=== PATIENT | female | born 1990 | race Caucasian/White ===

== ENCOUNTER → 2016-10-17 | Outpatient (CLI) | payer SELFPAY ==
[2016-10-17 16:08] LABS: CH 30.1; CHCM 35.4; HCT 41.1 % (34.0-46.0); HDW 2.79; MCHC 34.1 g/dL (31.0-37.0); MCV 85.2 fL (80.0-100.0); Mean Platelet Volume 6.9; RBC 4.83 m/uL (3.80-5.40); RDW 12.2 % (11.5-15.5); WBC 5.5 k/uL (3.8-10.6)
== END ==
LOC: LABWHC1 15:40
PROVIDERS: ATTEND Obstetrics & Gynecology
DX: Z34.80 Encounter for supervision of other normal pregnancy, unspecified trimester (principal)
CPT/HCPCS: 36415; 84702; 85027

== ENCOUNTER → 2016-10-19 | Outpatient (CLI) | payer SELFPAY | END | disposition home or self-care (01) | LOC: LABWHC1 11:59 | PROVIDERS: ATTEND Obstetrics & Gynecology | DX: Z34.80 Encounter for supervision of other normal pregnancy, unspecified trimester (principal) | CPT/HCPCS: 36415; 84702 ==

== ENCOUNTER → 2016-10-23 | Outpatient (CLI) | payer SELFPAY | END | disposition home or self-care (01) | LOC: LABWHC1 07:54 | PROVIDERS: ATTEND Obstetrics & Gynecology | DX: Z34.80 Encounter for supervision of other normal pregnancy, unspecified trimester (principal) | CPT/HCPCS: 36415; 84702 ==

== ENCOUNTER → 2016-10-27 | Outpatient (CLI) | payer SELFPAY | END | disposition home or self-care (01) | LOC: LABWHC1 07:54 | PROVIDERS: ATTEND Obstetrics & Gynecology | DX: Z34.80 Encounter for supervision of other normal pregnancy, unspecified trimester (principal) | CPT/HCPCS: 36415; 84702 ==

== ENCOUNTER → 2016-11-29 | Outpatient (CLI) | payer OTHER ==
--- NOTE | 2016-11-29 22:16 | US ---
EXAMINATION TYPE: US OB <= 14 wk fetus DATE OF EXAM: 11/29/2016 4:20 PM COMPARISON: NONE CLINICAL HISTORY: 26-year-old female Z36 Confirm dates; patient stated had vaginal bleeding from 10/04 10/20 to 10/21/16. Date of LMP: 09/13/2016 Beta HcG (if available): NA EXAM PERFORMED: Transabdominal (TA) FINDINGS: EXAM MEASUREMENTS: GESTATIONAL AGE / DATING Physician Established: not established Dates by LMP: (11 weeks/0 days) EDC: 06/20/2017 Dates by First Scan: today Dates by Current Scan for: (9 weeks/2 days) EDC: 07/02/2017 MATERNAL ANATOMY Uterus: 9.7 x 7.3 x 5.2cm Right Ovary: 2.9 x 1.0 x 1.3cm Left Ovary: 2.5 x 1.9 x 2.1cm Post CDS / Adnexa: wnl Presence of free fluid: no Presence of corpus luteal cyst: in left ovary = 1.7 x 1.7 x 1.7cm Presence of subchorionic bleed: no GESTATION / SURVEY CRL: 2.5cm (9 weeks/2 days) Yolk Sac (normal less than 6mm): 2.9mm Heart Rate: 186 bpm (average of two as HR >180bpm) Rhythm: Normal IUP: Viable IUP SCIENTIST ENGINEER NOTES: Single, viable, IUP, 9 weeks/2 days, EDC: 07/02/2017; HR 186BPM average of 2 measu res as is > normal department standard of 180 BPM. Tech findings called to Cristina at Dr Schwarz's Of [facility] at exam's end. JJ IMPRESSION: 1. Single live anterior with gestational age of 9 weeks 2 days by crown-rump length. This i s frankly discordant with gestational age by LMP (11 weeks 0 days); correlate for accuracy of recall. 2. tachycardia. Short interval follow-up as clinically indicated. 3. Complete survey recommended at 18-20 weeks.
== END | disposition home or self-care (01) ==
LOC: RADUSWWP 15:37
PROVIDERS: ATTEND Obstetrics & Gynecology
DX: O76 Abnormality in fetal heart rate and rhythm complicating labor and delivery (principal); Z3A.09 9 weeks gestation of pregnancy
CPT/HCPCS: 76801

== ENCOUNTER → 2016-12-19 | Outpatient (CLI) | payer OTHER ==
[2016-12-19 08:39] LABS: CH 30.8; HCT 40.6 % (34.0-46.0); HDW 2.71; HGB 13.8 gm/dL (11.4-16.0); MCHC 33.9 g/dL (31.0-37.0); MCV 88.3 fL (80.0-100.0); Mean Platelet Volume 6.8; RBC 4.59 m/uL (3.80-5.40); RDW 12.7 % (11.5-15.5); WBC 6.2 k/uL (3.8-10.6)
[2016-12-19 09:12] LABS: Glucose 83 mg/dL (74-99); Non-African American GFR(MDRD) >60 (>60 ml/min/1.73 sqM)
[2016-12-19 09:34] LABS: Hepatitis B Surface Ag Index 0.08
[2016-12-20 06:15] LABS: Toxoplasma Antibody (IgG) <3.0 IU/mL (<7.2)
== END | disposition home or self-care (01) ==
LOC: LABWHC1 08:02
PROVIDERS: ATTEND Obstetrics & Gynecology
DX: Z34.82 Encounter for supervision of other normal pregnancy, second trimester (principal); Z3A.00 Weeks of gestation of pregnancy not specified
CPT/HCPCS: 36415; 82565; 82947; 85027; 86762; 86777; 86778; 86780; 86850; 86900; 86901; 87340

== ENCOUNTER → 2017-03-15 | Outpatient (CLI) | payer OTHER ==
[2017-03-15 08:37] LABS: CH 31.9; CHCM 34.5; HDW 2.86; HGB 12.5 gm/dL (11.4-16.0); MCH 31.3 pg (25.0-35.0); MCHC 33.7 g/dL (31.0-37.0); MCV 92.9 fL (80.0-100.0); Mean Platelet Volume 8.2; RBC 3.98 m/uL (3.80-5.40); RDW 13.7 % (11.5-15.5); WBC 9.1 k/uL (3.8-10.6)
== END | disposition home or self-care (01) ==
LOC: LABWHC1 07:17
PROVIDERS: ATTEND Obstetrics & Gynecology
DX: Z34.82 Encounter for supervision of other normal pregnancy, second trimester (principal); Z3A.00 Weeks of gestation of pregnancy not specified
CPT/HCPCS: 36415; 82950; 85027

== ENCOUNTER → 2017-03-20 | Outpatient (CLI) | payer OTHER ==
[2017-03-20 11:22] LABS: Glucose 3 Hour, Gest 71 mg/dL
== END | disposition home or self-care (01) ==
LOC: LABWHC1 07:24
PROVIDERS: ATTEND Obstetrics & Gynecology
DX: O99.810 Abnormal glucose complicating pregnancy (principal); Z3A.00 Weeks of gestation of pregnancy not specified
CPT/HCPCS: 36415; 82951; 82952

== ENCOUNTER 2017-06-13 12:53 | Inpatient (IN) | payer OTHER ==
[2017-06-13] MEDS ORDERED: TERBUTALINE 1 MG/ML VIAL SQ PRN (13:28)
[2017-06-13] MEDS ORDERED: CARBOPROST TROMETHAMINE 250 MCG/ML 1 ML AMP IM PRN (13:28)
[2017-06-13] MEDS ORDERED: METHYLERGONOVINE 0.2 MG/ML 1 ML AMP IM PRN (13:28)
[2017-06-13] MEDS ORDERED: LIDOCAINE 1% (PF) 10 MG/ML (30 ML SDV) SQ PRN (13:28)
[2017-06-13] MEDS ORDERED: OXYTOCIN 10 UNIT/ML 1 ML VIAL IM PRN (13:28)
[2017-06-13] MEDS ORDERED: LACTATED RINGERS 1,000 ML IV SCH (13:30)
[2017-06-13] MEDS ORDERED: OXYTOCIN 20 UNITS/1000 ML NS 1,000 ML IV SCH ×2 (13:30→18:15)
[2017-06-13] MEDS ORDERED: BUTORPHANOL 1 MG/ML 1 ML VIAL IV PRN (13:30)
[2017-06-13 13:51] VITALS: BMI 27.8
[2017-06-13 14:27] LABS: Basophils % (A) 0 %; CH 31.7; CHCM 34.5; Eosinophils # (A) 0.1 k/uL (0-0.7); Eosinophils % (A) 1 %; HCT 39.4 % (34.0-46.0); HDW 2.93; HGB 13.1 gm/dL (11.4-16.0); Luc # (Auto) 0.13; Luc % (Auto) 1; Lymphocytes # (A) 1.4 k/uL (1.0-4.8); Lymphocytes % (A) 15 %; MCH 30.7 pg (25.0-35.0); MCHC 33.3 g/dL (31.0-37.0); MCV 92.1 fL (80.0-100.0); Mean Platelet Volume 7.7; Monocytes # (A) 0.5 k/uL (0-1.0); Monocytes % (A) 5 %; Neutrophils # (A) 7.1 k/uL (1.3-7.7); Neutrophils % (A) 78 %; RBC 4.27 m/uL (3.80-5.40); RDW 12.6 % (11.5-15.5); WBC 9.1 k/uL (3.8-10.6); WBC (Perox) 9.07
--- NOTE | 2017-06-13 17:49 | P.HPOB ---
History of Present Illness H&P Date: 06/13/17 Chief Complaint: Contractions. This patient is a pleasant 27-year-old 3 para 2 female estimated date of confinement 07/02/2017 estimated gestational age 37-2/7 weeks who presents to labor and delivery with complaints of regular painful contractions since 3 this morning. Patient was 3 cm in the office and is approximately 4-5 cm dilated now with active labor. Patient's care has been uncomplicated. Patient did have 1 abnormal 3 hour GTT value which does not fulfill the diagnosis of gestational diabetes but I did watch her with nonstress tests and she's had normal growth ultrasounds. Review of Systems Constitutional: Denies chills, Denies fever Ears, nose, mouth and throat: Denies headache, Denies sore throat Cardiovascular: Denies chest pain, Denies shortness of breath Respiratory: Denies cough Gastrointestinal: Reports heartburn Genitourinary: Reports Menstruation: Reports amenorrhea Musculoskeletal: Denies myalgias Past Medical History Past Medical History: No Reported History Additional Past Medical History / Comment(s): removal of Fibroadenoma of breast x2 History of Any Multi-Drug Resistant Organisms: None Reported Additional Past Surgical History / Comment(s): Right Lumectomy 03/2013 Past Anesthesia/Blood Transfusion Reactions: No Reported Reaction Past Psychological History: No Psychological Hx Reported Smoking Status: Never smoker Past Alcohol Use History: None Reported Past Drug Use History: None Reported - Past Family History Father Family Medical History: Hyperlipidemia Additional Family Medical History / Comment(s): pt states many family members with hyperlipidemia Medications and Allergies Home Medications Medication Instructions Recorded Confirmed Type Pid-Ogmf-Qtldb Acid 1 tab PO DAILY 03/30/14 06/13/17 History [-U Capsule (formulary)] Allergies Allergy/AdvReac Type Severity Reaction Status Date / Time amoxicillin trihydrate Allergy Rash/Hives Verified 06/13/17 13:31 [From Augmentin] potassium clavulanate Allergy Rash/Hives Verified 06/13/17 13:31 [From Augmentin] Exam - Vital Signs Vital signs: Vital Signs Temp Pulse Resp BP Pulse Ox 06/13/17 13:30 98.2 F 104 H 17 128/76 100 Intake and Output 06/13/17 06/13/17 06/13/17 06:59 14:59 22:59 Other: # Voids 1 Weight 66.678 kg Patient Weight 06/14/17 06:59 Weight 66.678 kg - OBG Physical Exam Abdomen: bowel sounds normal, no diffuse tenderness, no bruit present, no guarding noted, no hepatomegaly, no splenomegaly, no mass Vulva: both: normal Vagina: normal moisture, no discharge Cervix: no lesion (Cervix is 4-5 cm dilated and approximately 80% effaced.), no discharge Uterus: enlarged (Fundal height is consistently term .) Results blood workup shows she is oh positive, rubella immune, RPR nonreactive , hepatitis B negative, Glucola was abnormal with a normal three-hour gtt., group B strep was negative, ultrasounds have been normal. Result Diagrams: 06/13/17 14:14 Assessment and Plan (1) Normal labor Narrative/Plan: This is a pleasant 27-year-old 3 para 2 female 37-2/7 weeks gestation who is admitted to labor and delivery in active labor. Plan is anticipate normal vaginal delivery. Current Visit: No Status: Acute Code(s): O80 - ENCOUNTER FOR FULL-TERM UNCOMPLICATED DELIVERY SNOMED Code(s): 56757052 (2) Third trimester Current Visit: No Status: Acute Code(s): Z33.1 - STATE, INCIDENTAL SNOMED Code(s): 81204525
--- NOTE | 2017-06-13 18:12 | P.PROBDLV ---
Vaginal Delivery Note - . Vaginal Delivery Note: Normal spontaneous vaginal delivery viable female infant Apgars 9 and 9 delivery time is 1756 hrs. Please see dictated H&P for intimate details of this patient's admission. Brief summary this pleasant 27-year-old 3 para 2 female 37-2/7 weeks gestation admitted to labor and delivery in active labor. Patient is artificial rupture membranes for clear fluid at about 5 cm dilated. Labor is augmented with Pitocin she does not request any pain medications patient gets to complete pushes the head to the perineum. Posterior perineum is supported we have controlled delivery of the 's head over the intact perineum. Mouth and nares are bulb suctioned. There is no evidence of a nuchal cord. With gentle downward traction we then have deliver the anterior and posterior shoulder and rest this 's body. This is a vigorous viable female Apgars are 9 and 9 delivery time is 1756 hrs. After delivery of the the umbilical cord is doubly clamped and cut appears to be trivascular. Placenta is then spontaneously delivered intact. There is marginal cord insertion but otherwise it appears normal. Inspection of perineum shows no lacerations and no repair. Estimated blood loss is 100 mL. All counts are correct 3. No complications. and mother stable in delivery room.
[2017-06-13] MEDS ORDERED: HYDROCORTISONE 2.5% RECTAL CREAM 30 GM TUBE RECTAL PRN (18:13)
[2017-06-13] MEDS ORDERED: diphenhydrAMINE 25 MG CAP PO PRN (18:13)
[2017-06-13] MEDS ORDERED: WITCH HAZEL 1 EACH MED..PAD TOPICAL PRN (18:13)
[2017-06-13] MEDS ORDERED: SIMETHICONE 80 MG CHEWABLE PO PRN (18:13)
[2017-06-13] MEDS ORDERED: diphenhydrAMINE 50 MG/ML 1 ML VIAL IVP PRN (18:13)
[2017-06-13] MEDS ORDERED: BENZOCAINE/MENTHOL SPRAY 1 GM/SPRAY AEROSOL TOPICAL PRN (18:13)
[2017-06-13] MEDS ORDERED: ACETAMINOPHEN TAB 325 MG TAB PO PRN (18:13)
[2017-06-13] MEDS ORDERED: ZOLPIDEM 5 MG TAB PO PRN (18:13)
[2017-06-13] MEDS ORDERED: BISACODYL 10 MG SUPP RECTAL PRN (18:13)
[2017-06-13] MEDS ORDERED: LANOLIN CREAM 5 GM TUBE TOPICAL PRN (18:13)
[2017-06-13] MEDS ORDERED: Acetaminophen-Codeine 300-30mg TAB PO PRN ×2 (18:13)
[2017-06-13] MEDS: IBUPROFEN 600 MG TAB PO PRN (18:30)
[2017-06-13] MEDS: SENNOSIDES-DOCUSATE SODIUM 1 EACH TAB PO SCH (20:04)
[2017-06-14] MEDS ORDERED: IBUPROFEN 600 MG TAB PO ONE (02:35)
--- NOTE | 2017-06-14 05:44 | P.PNOBGVD ---
Subjective - Subjective Patient reports: Reports appetite normal, Reports voiding normally, Reports pain well controlled, Reports ambulating normally : doing well Objective - Latest Vital Signs Latest vital signs: Vital Signs Temp Pulse Resp BP Pulse Ox 06/14/17 00:00 98.1 F 106 H 18 125/66 96 06/13/17 20:10 98.2 F 107 H 16 124/62 98 06/13/17 19:40 99.0 F 107 H 16 130/64 97 06/13/17 19:08 99.1 F 111 H 16 105/57 98 06/13/17 18:55 104 H 18 131/62 06/13/17 18:40 96 17 124/64 06/13/17 18:25 87 18 126/74 06/13/17 18:10 97.2 F L 100 18 127/74 98 06/13/17 13:30 98.2 F 104 H 17 128/76 100 Intake and Output 06/13/17 06/13/17 06/14/17 14:59 22:59 06:59 Intake Total 1300 600 Balance 1300 600 Intake: IV 1300 Lactated Ringers 1,000 ml 1300 @ 125 mls/hr IV .Q8H [facility] Rx#:[id number] Oral 600 Other: Voiding Method Toilet # Voids 1 1 Weight 66.678 kg Patient Weight 06/14/17 06:59 Weight 66.678 kg - Exam Lungs: bilateral: normal Chest: Normal S1, Normal S2 Extremities: Present: normal Abdomen: Present: normal appearance, soft Uterus: Present: normal, firm Assessment and Plan (1) Normal labor Narrative/Plan: day #1. Patient is resting without complaints. Vital signs are stable she's afebrile. Uterus is firm nontender she's having normal lochia. My impression is a normal course. Plan is to continue routine care discharge home tomorrow. Current Visit: No Status: Acute Code(s): O80 - ENCOUNTER FOR FULL-TERM UNCOMPLICATED DELIVERY SNOMED Code(s): 18603897 (2) Third trimester Current Visit: No Status: Acute Code(s): Z33.1 - STATE, INCIDENTAL SNOMED Code(s): 19686451
[2017-06-14] MEDS: IBUPROFEN 600 MG TAB PO PRN ×2 (08:42→19:43)
[2017-06-14] MEDS: SENNOSIDES-DOCUSATE SODIUM 1 EACH TAB PO SCH ×2 (08:45→19:44)
[2017-06-14 12:13] VITALS: RESP 16
[2017-06-14 16:43] VITALS: PULSE 89
[2017-06-15 00:55] VITALS: BP 126/86; TEMP 98
[2017-06-15] MEDS: IBUPROFEN 600 MG TAB PO PRN (02:15)
--- NOTE | 2017-06-15 05:45 | P.PNOBGVD ---
Subjective - Subjective Patient reports: Reports appetite normal, Reports voiding normally, Reports pain well controlled, Reports ambulating normally : doing well Objective - Latest Vital Signs Latest vital signs: Vital Signs Temp Pulse Resp BP 06/15/17 00:00 98.0 F 89 16 126/86 06/14/17 16:00 98.6 F 89 16 113/71 06/14/17 12:00 98.4 F 80 16 128/76 06/14/17 08:26 98.3 F 102 H 18 113/57 06/14/17 08:25 102 H Intake and Output 06/14/17 06/14/17 06/15/17 14:59 22:59 06:59 Intake Total 300 600 Balance 300 600 Intake: Oral 300 600 Other: # Voids 2 1 - Exam Lungs: bilateral: normal Chest: Normal S1, Normal S2 Extremities: Present: normal Abdomen: Present: normal appearance, soft Uterus: Present: normal, firm Assessment and Plan Assessment: post day #2. Patient is resting without complaints and wishes to go home. Vital signs are stable and she is afebrile. Uterus is firm nontender she 's having normal lochia. My impression this is a normal course. Plan is to continue routine care and discharge home this morning. (1) Normal labor Current Visit: No Status: Acute Code(s): O80 - ENCOUNTER FOR FULL-TERM UNCOMPLICATED DELIVERY SNOMED Code(s): 41561101 (2) Third trimester Current Visit: No Status: Acute Code(s): Z33.1 - STATE, INCIDENTAL SNOMED Code(s): 83887375
--- NOTE | 2017-06-15 05:47 | P.DS ---
Providers Date of admission: 06/13/17 13:28 Expected date of discharge: 06/15/17 Attending physician: Thee Schwarz Primary care physician: Stated None - Discharge Diagnosis(es) (1) Normal labor Current Visit: No Status: Acute (2) Third trimester Current Visit: No Status: Acute Hospital Course: please see dictated H&P for intimate details of this patient's admission. Brief summary pleasant 27-year-old 3 para 2 female 37-2/7 weeks gestation who is admitted to labor and delivery in active labor. Patient quickly goes on to have a vaginal delivery viable female infant. Please see dictated delivery note. day #2 patient's felt be stable for discharge home follow up with me in 6 weeks. Procedures: normal vaginal delivery. Patient Condition at Discharge: Good Plan - Discharge Summary New Discharge Prescriptions: New Acetaminophen-Codeine 300-30mg [Tylenol w/codeine #3] 1 - 2 each PO Q4HR PRN #30 tab PRN Reason: Mild Pain exceeding Tylenol Ibuprofen [Motrin] 600 mg PO Q6HR PRN #40 tab PRN Reason: Mild Pain Or Fever >= 100.5 No Action Tom-Lhet-Mvbzi Acid [-U Capsule (formulary)] 1 tab PO DAILY Discharge Medication List Pqg-Wrnn-Ltzex Acid [-U Capsule (formulary)] 1 tab PO DAILY [History] Acetaminophen-Codeine 300-30mg [Tylenol w/codeine #3] 1 - 2 each PO Q4HR PRN # 30 tab 06/15/17 [Rx] Ibuprofen [Motrin] 600 mg PO Q6HR PRN #40 tab 06/15/17 [Rx] Follow up Appointment(s)/Referral(s): Thee Schwarz MD [STAFF PHYSICIAN] - 06/26/17 2:00 pm Patient Instructions/Handouts: Vaginal Delivery (DC) Activity/Diet/Wound Care/Special Instructions: no intercourse or anything per vagina for 6 weeks. Please call if any fever, chills, excessive vaginal bleeding, and/or abdominal pain. Discharge Disposition: HOME SELF-CARE
== END 2017-06-15 06:10 | disposition home or self-care (01) | DRG 560 ==
LOC: FBPOP 12:53 → 4FBP 13:28
PROVIDERS: ADMIT Obstetrics & Gynecology; ATTEND Obstetrics & Gynecology
PROC: 10E0XZZ Delivery of Products of Conception, External Approach (ICD-10-PCS; principal; 2017-06-13)
DX: O80 Encounter for full-term uncomplicated delivery (principal); Z88.0 Allergy status to penicillin; Z37.0 Single live birth; Z3A.37 37 weeks gestation of pregnancy; Z79.899 Other long term (current) drug therapy
CPT/HCPCS: 85025; 88307